=== PATIENT | female | born 1990 | race Caucasian/White ===

== ENCOUNTER 2017-08-21 16:49 | Emergency (ER) | payer BC ==
[~2017-08-21] VITALS: Ht 157.5 cm; Wt 72.0 kg
[2017-08-21 16:51] VITALS: Ht 157.5 cm; Wt 72.0 kg
[2017-08-21] MEDS ORDERED: morphine 4 MG/ML VIAL IV STA ×2 (17:55→19:14)
[2017-08-21] MEDS ORDERED: SOD CHLORIDE 0.9% 1,000 ML IV STA (17:55)
[2017-08-21] MEDS ORDERED: ONDANSETRON 4 MG INJ IV STA (17:55)
--- NOTE | 2017-08-21 18:32 | RADRPT ---
PROCEDURE: Right Upper Quadrant Ultrasound. CLINICAL INDICATION: Abdominal Pain TECHNIQUE: Multiple real-time images were acquired of the patient's right upper quadrant abdomen a nd retroperitoneum utilizing a high resolution transducer. COMPARISON: None FINDINGS: The liver measures 16.9 cm, and demonstrates normal echogenicity. The main portal vein is patent wit h proper directional flow. There is no intrahepatic biliary ductal dilatation. The extrahepatic comm on bile duct measures 3 mm. The gallbladder is without stones, wall thickening, or pericholecystic fluid. The visualized pancreas is unremarkable. The right kidney measures 9.0 cm and demonstrates normal echotexture. There is no right renal calcul us or hydronephrosis. The visualized abdominal aorta and IVC are grossly unremarkable. IMPRESSION: Mild hepatomegaly. No cholelithiasis or acute cholecystitis. Normal CBD. RPTAT: EE Physician Mary Lou Date Time Electronically viewed and signed by Physician Mary Lou on 08/21/2017 18:31 /
[2017-08-21 19:11] LABS: BASOPHILS % 0.2 % (0.0-2.0); EOSINOPHILS # 0.1 10^3/ul (0.0-0.5); HEMATOCRIT 39.4 % (37.0-47.0); HEMOGLOBIN 13.7 g/dl (12.0-16.0); LYMPHOCYTES # 2.1 10^3/ul (0.8-2.9); LYMPHOCYTES % 19.8 % (15.0-51.0); MEAN CORPUSCULAR HEMOGLOBIN 30.6 pg (29.0-33.0); MEAN CORPUSCULAR HGB CONC 34.8 g/dl (32.0-37.0); MEAN CORPUSCULAR VOLUME 88.1 fl (82.0-101.0); MEAN PLATELET VOLUME 11.1 fl (7.4-10.4); MONOCYTE # 0.7 10^3/ul (0.3-0.9); MONOCYTES % 6.2 % (0.0-11.0); NEUTROPHIL # 7.7 10^3/ul (1.6-7.5); NEUTROPHILS % 72.5 % (39.0-77.0); PLATELET COUNT 224 10^3/UL (140-415); RED BLOOD COUNT 4.47 10^6/ul (4.20-5.40); RED CELL DISTRIBUTION WIDTH 11.8 % (11.5-14.5); WHITE BLOOD COUNT 10.6 10^3/ul (4.8-10.8)
[2017-08-21 19:19] LABS: ADD UMIC YES; UR ASCORBIC ACID NEGATIVE (NEGATIVE); UR BACTERIA MANY /HPF (NONE SEEN); UR BILIRUBIN (Dip) NEGATIVE (NEGATIVE); UR BLOOD (Dip) 2+ mg/dL (NEGATIVE); UR CLARITY CLOUDY (CLEAR); UR COLOR YELLOW (YELLOW); UR GLUCOSE (Dip) NEGATIVE (NEGATIVE); UR KETONES (Dip) TRACE mg/dL (NEGATIVE); UR LEUKOCYTE ESTERASE (Dip) 2+ Leu/ul (NEGATIVE); UR MUCUS FEW /HPF (NONE SEEN); UR NITRITE (Dip) POSITIVE (NEGATIVE); UR RBC 23 /HPF (0-5); UR SPECIFIC GRAVITY (Dip) 1.018 (1.003-1.030); UR SQUAMOUS EPITHELIAL CELL FEW /HPF (FEW); UR TOTAL PROTEIN (Dip) 2+ mg/dl (NEGATIVE); UR UROBILINOGEN (Dip) NEGATIVE (NEGATIVE)
[2017-08-21 19:36] LABS: ALBUMIN 4.5 g/dl (3.3-4.9); ALBUMIN/GLOBULIN RATIO 1.36; BILIRUBIN,INDIRECT 0.8 mg/dl (0-1.1); BILIRUBIN,TOTAL 0.8 mg/dl (0.2-1.3); CREATININE 0.76 mg/dl (0.44-1.00); POTASSIUM 3.7 mmol/L (3.5-5.1); TOTAL PROTEIN 7.8 g/dl (6.1-8.1)
--- NOTE | 2017-08-21 20:00 | RADRPT ---
PROCEDURE: CT abdomen and pelvis without contrast. CLINICAL INDICATION: Abdominal pain TECHNIQUE: Continues 2.5 mm axial images were obtained from the domes of the diaphragms to the inf erior pubic rami. No oral or intravenous contrast was administered. The calculated dose length prod uct (DLP) = 611.70 mGy-cm. Exam CTDlvol = 9.89 mGy. One or more of the following dose reduction t echniques were used: Automated exposure control, adjustment of the mA and or KV according to patient size, or use of iterative reconstruction technique. One or more of the following dose reduction te chniques were used: Automated exposure control, adjustment of the mA and or KV according to patient size, or use of iterative reconstruction technique. COMPARISON: None. FINDINGS: The lung bases are clear. There is a calcified granuloma in the right lower lobe posteriorly. Liver, gallbladder, pancreas, spleen, and adrenals are within normal limits. Evaluation of the genit ourinary system demonstrates no evidence renal calculi or obstructive uropathy. There is probable du plicated left renal collecting system. There is mild stranding surrounding the upper pole of the le ft kidney which may suggest pyelonephritis in the right clinical setting.. Aorta is normal in calibe r. No pathologically enlarged mesenteric lymph nodes are seen. The stomach and small bowel loops are within normal limits. There is no small bowel dilatation or obstruction. No free fluid, free air, a bscess is now in the upper abdomen CT pelvis: Images through the pelvis demonstrate physiologic free fluid in the right marcos pelvis. N o abscess or free air seen. The bladder is partially this banded. There is mild thickening of the bl adder wall which may suggest cystitis. Uterus is enlarged in appearance suggestive of fibroid change . There are bilateral adnexal cysts/follicles. Cervix is prominent, and correlation with physical ex am is recommended. Prominent veins are noted in both pelvis sees and dilated bilateral gonadal veins left greater than right. This is suggestive of pelvic venous congestion syndrome. Evaluation of the colon demonstrates no diverticulosis, diverticulitis or acute colitis. Normal appendix is identifie d. The terminal ileum is unremarkable. There are no pathologically enlarged iliac chain lymph nodes. No destructive bony lesions are seen IMPRESSION: 1. Dilated bilateral pelvic veins and gonadal veins suggestive pelvic venous congestion syndrome. 2. Fullness of the cervix. Recommend correlation with physical exam. 3. Small bilateral ovarian cysts/follicles. 4. Mild thickening of the bladder wall. Recommend correlation with urinalysis to exclude cystitis. There is also mild stranding along the upper pole of the left kidney which may suggest concomitant p yelonephritis. This is suboptimally evaluated on this noncontrast study. 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 5. Physiologic free fluid in the right marcos pelvis. No abscess or free air. 6. Normal appendix and terminal ileum RPTAT: HH .Alexis Ocasio MD, MD Date Time Electronically viewed and signed by .Alexis Ocasio MD, MD on 08/21/2017 20:00 .W/
[2017-08-21] MEDS ORDERED: KETOROLAC 30 MG INJ IV STA (20:04)
[2017-08-21] MEDS ORDERED: CEFTRIAXONE 1 GM/50 ML (PMX) 50 ML IVPB ONE (20:30)
[2017-08-21] MEDS ORDERED: METOCLOPRAMIDE 10 MG INJ IV ONE (20:30)
[2017-08-21] MEDS ORDERED: DIPHENHYDRAMINE 50 MG INJ IV ONE (20:30)
[2017-08-21] MEDS ORDERED: ONDA-43 PO (21:10)
[2017-08-21] MEDS ORDERED: CIPR500T4 PO (21:10)
[2017-08-21] MEDS ORDERED: IBUP-1542 PO (21:10)
--- NOTE | 2017-08-21 21:21 | ERD ---
ER Documentation Chief Complaint Date/Time DATE: 08/21/17 TIME: 21:16 Chief Complaint AP TODAY HPI This is a 27-year-old female presents to the ER with generalized abdominal pain that started this morning. Per patient pain is severe and constant and radiates to her entire abdomen. Patient admits to nausea and nonbilious nonbloody vomiting. She denies any diarrhea. Patient states that her abdominal pain radiates to the back as well. Patient does admit to urinary frequency and dysuria. Patient states she feels as if she is getting punched. She has not tried anything for the pain. Patient went to an urgent care and was sent to the ER for further evaluation. Denies any fevers or chills. ROS 12 point review of systems was done, all negative except per HPI. Medications Home Meds Active Scripts Ibuprofen* (Motrin*) 600 Mg Tab, 600 MG PO Q6, #30 TAB Prov:JOSUÉ GONZALEZ 08/21/17 Ondansetron Hcl* (Zofran*) 4 Mg Tab, 4 MG PO Q4H Y for NAUSEA AND OR VOMITING, # 15 TAB Prov:JOSUÉ GONZALEZ 08/21/17 Ciprofloxacin Hcl* (Ciprofloxacin Hcl*) 500 Mg Tablet, 500 MG PO BID for 10 Days , TAB Prov:JOSUÉ GONZALEZ 08/21/17 PMhx/Soc History of Surgery: Yes () Anesthesia Reaction: No Hx Neurological Disorder: No Hx Respiratory Disorders: No Hx Cardiac Disorders: No Hx Psychiatric Problems: No Hx Miscellaneous Medical Probl: No Hx Alcohol Use: No Hx Substance Use: No Hx Tobacco Use: No Smoking Status: Never smoker Physical Exam Vitals Vital Signs Date Time Temp Pulse Resp B/P Pulse Ox O2 Delivery O2 Flow Rate FiO2 08/21/17 16:51 98.8 99 18 117/82 99 Physical Exam Const: [] Head: Atraumatic Eyes: Normal Conjunctiva. Resp: Clear to auscultation bilaterally Cardio: Regular rate and rhythm, no murmurs Abd: soft, non distended, TTP in the RUQ and LUQ. no rebound tenderness, patient is guarding her abdomen Back: +CVA tenderness bilaterally Neur: Awake and alert Psych: Normal Mood and Affect Result Diagram: 08/21/17181908/21/171819 Results 24 hrs Laboratory Tests Test 08/21/17 18:20 White Blood Count 10.610^3/ul Red Blood Count 4.4710^6/ul Hemoglobin 13.7g/dl Hematocrit 39.4% Mean Corpuscular Volume 88.1fl Mean Corpuscular Hemoglobin 30.6pg Mean Corpuscular Hemoglobin Concent 34.8g/dl Red Cell Distribution Width 11.8% Platelet Count 63781^3/UL Mean Platelet Volume 11.1fl Neutrophils % 72.5% Lymphocytes % 19.8% Monocytes % 6.2% Eosinophils % 1.0% Basophils % 0.2% Nucleated Red Blood Cells % 0.0/100WBC Neutrophils # 7.710^3/ul Lymphocytes # 2.110^3/ul Monocytes # 0.710^3/ul Eosinophils # 0.110^3/ul Basophils # 0.010^3/ul Nucleated Red Blood Cells # 0.010^3/ul Urine Color YELLOW Urine Clarity CLOUDY Urine pH 6.0 Urine Specific [place] 1.018 Urine Ketones TRACEmg/dL Urine Nitrite POSITIVEmg/dL Urine Bilirubin NEGATIVEmg/dL Urine Urobilinogen NEGATIVEmg/dL Urine Leukocyte Esterase 2+Hemanth/ul Urine Microscopic RBC 23/HPF Urine Microscopic WBC 77/HPF Urine Squamous Epithelial Cells FEW/HPF Urine Bacteria MANY/HPF Urine Mucus FEW/HPF Urine Hemoglobin 2+mg/dL Urine Glucose NEGATIVEmg/dL Urine Total Protein 2+mg/dl Sodium Level 137mmol/L Potassium Level 3.7mmol/L Chloride Level 102mmol/L Carbon Dioxide Level 25mmol/L Anion Gap 14 Blood Urea Nitrogen 16mg/dl Creatinine 0.76mg/dl Glucose Level 91mg/dl Calcium Level 9.0mg/dl Total Bilirubin 0.8mg/dl Direct Bilirubin 0.00mg/dl Indirect Bilirubin 0.8mg/dl Aspartate Amino Transf (AST/SGOT) 20IU/L Alanine Aminotransferase (ALT/SGPT) 33IU/L Alkaline Phosphatase 67IU/L Total Protein 7.8g/dl Albumin 4.5g/dl Globulin 3.30g/dl Albumin/Globulin Ratio 1.36 Lipase 113U/L Current Medications Medications (Trade) Dose Ordered Sig/Rd Route PRN Reason Start Time Stop Time Status Last Admin Dose Admin Sodium Chloride (NS) 1,000 ml @ 1,000 mls/hr Q1H STAT IV 08/21/17 17:55 08/21/17 18:54 DC 08/21/17 17:55 Morphine Sulfate (morphine) 4 mg ONCE STAT IV 08/21/17 17:55 08/21/17 17:57 DC 08/21/17 18:41 Ondansetron HCl (Zofran Inj) 4 mg ONCE STAT IV 08/21/17 17:55 08/21/17 17:57 DC 08/21/17 17:55 Morphine Sulfate (morphine) 3 mg ONCE STAT IV 08/21/17 19:14 08/21/17 19:16 DC 08/21/17 19:22 Ketorolac Tromethamine 30 mg 30 mg ONCE STAT IV 08/21/17 20:04 08/21/17 20:05 DC 08/21/17 20:40 Ceftriaxone Sodium (Rocephin) 50 ml @ 100 mls/hr ONCE ONCE IVPB 08/21/17 20:30 08/21/17 20:59 DC 08/21/17 20:25 Metoclopramide HCl (Reglan) 10 mg ONCE ONCE IV 08/21/17 20:30 08/21/17 20:31 DC 08/21/17 20:37 Diphenhydramine HCl (Benadryl) 25 mg ONCE ONCE IV 08/21/17 20:30 08/21/17 20:31 DC 08/21/17 20:37 [place] [address] Radiology Main Line: [phone] DIAGNOSTIC IMAGING REPORT Patient: VIC OLEA : 1990 Age: 27 Sex: F MR #: [id number] DOS: 08/21/17 1755 Ordering MD: JOSUÉ GONZALEZ PA-C Location: [facility] Room/Bed: PROCEDURE: CT abdomen and pelvis without contrast. CLINICAL INDICATION: Abdominal pain TECHNIQUE: Continues 2.5 mm axial images were obtained from the domes of the diaphragms to the inferior pubic rami. No oral or intravenous contrast was administered. The calculated dose length product (DLP) = 611.70 mGy-cm. Exam CTDlvol = 9.89 mGy. One or more of the following dose reduction techniques were used: Automated exposure control, adjustment of the mA and or KV according to patient size, or use of iterative reconstruction technique. One or more of the following dose reduction techniques were used: Automated exposure control, adjustment of the mA and or KV according to patient size, or use of iterative reconstruction technique. COMPARISON: None. FINDINGS: The lung bases are clear. There is a calcified granuloma in the right lower lobe posteriorly. Liver, gallbladder, pancreas, spleen, and adrenals are within normal limits. Evaluation of the genitourinary system demonstrates no evidence renal calculi or obstructive uropathy. 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 There is mild stranding surrounding the upper pole of the left kidney which may suggest pyelonephritis in the right clinical setting.. Aorta is normal in caliber. No pathologically enlarged mesenteric lymph nodes are seen. The stomach and small bowel loops are within normal limits. There is no small bowel dilatation or obstruction. No free fluid, free air, abscess is now in the upper abdomen CT pelvis: Images through the pelvis demonstrate physiologic free fluid in the right marcos pelvis. No abscess or free air seen. The bladder is partially this banded. There is mild thickening of the bladder wall which may suggest cystitis. Uterus is enlarged in appearance suggestive of fibroid change. There are bilateral adnexal cysts/follicles. Cervix is prominent, and correlation with physical exam is recommended. Prominent veins are noted in both pelvis sees and dilated bilateral gonadal veins left greater than right. This is suggestive of pelvic venous congestion syndrome. Evaluation of the colon demonstrates no diverticulosis, diverticulitis or acute colitis. Normal appendix is identified. The terminal ileum is unremarkable. There are no pathologically enlarged iliac chain lymph nodes. No destructive bony lesions are seen IMPRESSION: 1. Dilated bilateral pelvic veins and gonadal veins suggestive pelvic venous congestion syndrome. 2. Fullness of the cervix. Recommend correlation with physical exam. 3. Small bilateral ovarian cysts/follicles. 4. Mild thickening of the bladder wall. Recommend correlation with urinalysis to exclude cystitis. There is also mild stranding along the upper pole of the left kidney which may suggest concomitant pyelonephritis. This is suboptimally evaluated on this noncontrast study. 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 5. Physiologic free fluid in the right marcos pelvis. No abscess or free air. 6. Normal appendix and terminal ileum RPTAT: HH .Alexis Ocasio MD, MD Date Time Electronically viewed and signed by .Alexis Ocasio MD, MD on 08/21/2017 20:00 .W/ CC: JOSUÉ GONZALEZ [place] [address] Radiology Main Line: [phone] DIAGNOSTIC IMAGING REPORT Patient: VIC OLEA : 1990 Age: 27 Sex: F MR #: [id number] DOS: 08/21/17 1755 Ordering MD: JOSUÉ GONZALEZ PA-C Location: [facility] Room/Bed: PROCEDURE: Right Upper Quadrant Ultrasound. CLINICAL INDICATION: Abdominal Pain TECHNIQUE: Multiple real-time images were acquired of the patient's right upper quadrant abdomen and retroperitoneum utilizing a high resolution transducer. COMPARISON: None FINDINGS: The liver measures 16.9 cm, and demonstrates normal echogenicity. The main portal vein is patent with proper directional flow. There is no intrahepatic biliary ductal dilatation. The extrahepatic common bile duct measures 3 mm. The gallbladder is without stones, wall thickening, or pericholecystic fluid. The visualized pancreas is unremarkable. The right kidney measures 9.0 cm and demonstrates normal echotexture. There is no right renal calculus or hydronephrosis. The visualized abdominal aorta and IVC are grossly unremarkable. IMPRESSION: Mild hepatomegaly. No cholelithiasis or acute cholecystitis. Normal CBD. RPTAT: EE Physician Mary Lou Date Time Electronically viewed and signed by Physician Mary Lou on 08/21/2017 18:31 RA/ CC: JOSUÉ GONZALEZ Procedures/MDM Differential diagnosis includes but is not limited to; GERD, ulcers, cholecystitis, choledocholithiasis, cholangitis, appendicitis, diverticulitis, UTI, pyelonephritis, intra-abdominal abscess. She does appear to have pyelonephritis, she was given Rocephin in the ER without any complications. Will be sent home with Cipro, Zofran and Ibuprofen. He is afebrile, and her pain was controlled in the ER. Patient was able to tolerate p.o. fluids in the ER. She is stable for outpatient follow-up. Patient is to follow-up with her primary care doctor within 1-2 days return to ER sooner if symptoms worsen. My medical decision making shared with the patient she understands and agrees with plan. Departure Diagnosis: Primary Impression: Pyelonephritis Condition: Stable Patient Instructions: Pyelonephritis Additional Instructions: Call your primary care doctor TOMORROW for an appointment during the next 1-2 days.See the doctor sooner or return here if your condition worsens before your appointment time. JOSUÉ GONZALEZ Aug 21, 2017 21:21
[2017-08-21 21:36] VITALS: BP 111/65; PULSE 100; RESP 20; TEMP 98.6
== END 2017-08-21 21:25 | disposition home or self-care (01) ==
LOC: FTE 16:49
DX: N12 Tubulo-interstitial nephritis, not specified as acute or chronic (principal)
CPT/HCPCS: 36415; 74176; 76705; 80053; 81001; 83690; 85025; 87086; 96374; 96375; 96376; 99285; J0696; J1200; J1885; J2270; J2405; J2765; J7030